=== PATIENT | male | born 1980 | race African-American/Black ===

== ENCOUNTER 2023-02-25 16:24 | Emergency (ER) | payer OTHER ==
[~2023-02-25] VITALS: Ht 175.3 cm; Wt 80.0 kg
[2023-02-25 16:29] VITALS: TEMP 98.4; O2SAT 96
[2023-02-25] MEDS ORDERED: LIDOCAINE HCL 1% 20ML VIAL (Pyxis) INJ INFIL ONE (20:00)
[2023-02-25] MEDS ORDERED: TETANUS, DIPHTHERIA, PERTUSSIS VAC/PF 0.5ML (>10YR OLD) IM ONE (20:00)
[2023-02-25] MEDS ORDERED: KETOROLAC 60MG/2ML VIAL IM ONE (20:00)
[2023-02-25 20:18] VITALS: BP 112/72; PULSE 86; RESP 16
[2023-02-25] MEDS ORDERED: IBUP-1525 MT (20:56)
[2023-02-25] MEDS ORDERED: TOPUD MT (20:56)
[2023-02-25] MEDS ORDERED: BACITRACIN ZINC OINT UDPKT TOP ONE (21:00)
== END 2023-02-25 21:06 | disposition home or self-care (01) ==
LOC: ER 16:24
DX: S61.511A Laceration without foreign body of right wrist, initial encounter (principal); X58.XXXA Exposure to other specified factors, initial encounter; Y93.89 Activity, other specified; Y92.89 Other specified places as the place of occurrence of the external cause; Y99.8 Other external cause status
CPT/HCPCS: 73090; 73120; 90715; 12004; 90471; 96372; 99284; J1885; J3490; Z7610 ×3